=== PATIENT | female | born 1985 | race Caucasian/White ===

== ENCOUNTER 2018-06-02 11:31 | Emergency (ER) | payer SELFPAY ==
[2018-06-02 11:49] VITALS: BP 127/63; PULSE 85; RESP 18; TEMP 37.1; O2SAT 98
--- NOTE | 2018-06-02 12:00 | W.ED.GENAD ---
Discharge Plan Disposition Patient Disposition: HOME Condition: Good Discharge Details Chief Complaint: DentalOral Clinical Impression: Dental infection Primary Care Provider: Mayra,Local ED Provider: Kristofer Hobson Home Meds and New Rx's Prescriptions: New clindamycin HCl 150 mg capsule 450 mg PO TID 10 Days Qty: 90 RF: 0 Continue cyclobenzaprine 5 MG tablet 5 mg PO TID PRN PRN (Reason: Spasms) Qty: 10 RF: 0 albuterol sulfate [Ventolin HFA] 200 PUFF HFA aerosol inhaler 2 puff Inhalation Q4H PRN PRNQty: 1 RF: 3 albuterol sulfate 2.5 MG/3 ML solution for nebulization 2.5 mg Inhalation Q4H PRN (Reason: Wheezing) Qty: 6 RF: 0 albuterol sulfate [Ventolin HFA] 200 PUFF HFA aerosol inhaler 2 puff Inhalation Q4H PRN PRNQty: 1 RF: 0 budesonide [Pulmicort Flexhaler] 180 MCG aerosol powdr breath activated 180 mcg Inhalation BID Qty: 1 RF: 0 Discharge Instructions Additional Instructions: You are being treated for a dental infection take 1000mg tylenol and 600mg ibuprofen for pain as needed follow up with a dentist within 2 weeks if possible return to the emergency department if unable to drink fluids to difficulty breathing Medical Decision Making patient comes in with upper and lower tooth pain for 2 weeks, posterior molars where she has broken teeth per pt. No stridor, drooling, fevers. HAs no evidence of ludwigs and no visible abscess on exam, has pain with percussion to upper and lower posterior molars where there is numerous caries. Midline uvula, no pain over hyoid, no drooling or restricted neck movements.Will start abx and advised f/u with dentist within 2 weeks and return precautions given Differential Diagnosis dental infection, pulpitis, abscess HPI General Mode of arrival: ambulatory. Date/Time Provider Initiated Documentation: 06/02/18 11:51. Limitations to Documentation: no limitations. Information obtained by: patient. History of Present Illness 32 year old F presents to the emergency department with the chief complaint of dental pain, described as severe, with intensity rated at 8. Quality is described as stabbing and aching, and is localized to the mouth. Patient reports no radiation. Patient started experiencing this week(s) (2) and it has been constant. No relieving factors improve symptom(s), No exacerbating factors reported . Patient notes no other symptoms.. Related Data Home Medications Medication Instructions Recorded Confirmed albuterol sulfate [Ventolin HFA] 2 puff INHALATION Q4H PRN PRN #1 10/27/16 06/02/18 inh cyclobenzaprine 5 mg PO TID PRN PRN #10 tab 01/30/17 06/02/18 albuterol sulfate 2.5 mg INHALATION Q4H PRN #6 vial 05/18/17 06/02/18 albuterol sulfate [Ventolin HFA] 2 puff INHALATION Q4H PRN PRN #1 05/18/17 06/02/18 inh budesonide [Pulmicort Flexhaler] 180 mcg INHALATION BID #1 05/18/17 06/02/18 aer.pow.ba clindamycin HCl 450 mg PO TID 10 Days #90 cap 06/02/18 Previous Rx's Medication Instructions Recorded albuterol sulfate [Ventolin HFA] 2 puff INHALATION Q4H PRN PRN #1 10/27/16 inh cyclobenzaprine 5 mg PO TID PRN PRN #10 tab 01/30/17 albuterol sulfate 2.5 mg INHALATION Q4H PRN #6 vial 05/18/17 albuterol sulfate [Ventolin HFA] 2 puff INHALATION Q4H PRN PRN #1 05/18/17 inh budesonide [Pulmicort Flexhaler] 180 mcg INHALATION BID #1 05/18/17 aer.pow.ba clindamycin HCl 450 mg PO TID 10 Days #90 cap 06/02/18 Allergies Allergy/AdvReac Type Severity Reaction Status Date / Time amoxicillin Allergy Intermediate Hives Unverified 06/02/18 11:51 Penicillins Allergy Intermediate Hives Unverified 06/02/18 11:51 Sulfa (Sulfonamide Allergy Intermediate Hives Unverified 06/02/18 11:51 Antibiotics) General Stated Complaint: DentalOral OG: 4 Review of Systems Review of Systems All systems reviewed & are unremarkable except as noted in HPI and below Constitutional Denies chills, Denies fever(s) and Denies weakness ENT Denies change in voice Cardiovascular Denies chest pain and Denies dyspnea Respiratory Denies dyspnea Gastrointestinal Denies abdominal pain, Denies nausea and Denies vomiting Genitourinary Denies dysuria Musculoskeletal Denies joint swelling Integumentary/Breasts Denies rash Neurologic Denies weakness [facility] Social History Smoking/Tobacco Use Status: Current every day Exam Const General: no acute distress Orientation: alert HENMT Head: normal to inspection Ears: external ears normal General nose exam: external nose normal Mouth: moist mucous membranes Eyes General: appearance normal, both eyes and all related structures Neck Neck: normal visual inspection Resp Effort & Inspection: normal respiratory effort and able to speak in complete sentences Cardio Rate: regular rate Skin General skin exam: no rashes or lesions noted Neuro General: alert and oriented x3 Extrem General: normal to inspection Psych Mental Status: mental status grossly normal Course Vital Signs Temperature 37.1 C 06/02/18 11:49 Pulse 85 06/02/18 11:49 Respiratory Rate 18 06/02/18 11:49 Blood Pressure 127/63 06/02/18 11:49 Pulse Oximetry 98 06/02/18 11:49 Temperature 37.1 C 06/02/18 11:49 Temperature Source Skin 06/02/18 11:49 Pulse 85 06/02/18 11:49 Respiratory Rate 18 06/02/18 11:49 Respiratory Effort 06/02/18 11:52 Blood Pressure 127/63 06/02/18 11:49 Blood Pressure Position Sitting 06/02/18 11:49 Pulse Oximetry 98 06/02/18 11:49 Pain Level 8 06/02/18 11:52
--- NOTE | 2018-06-02 12:03 | ED.GENADUL_ITS ---
Discharge Plan Disposition Patient Disposition: HOME Condition: Good Discharge Details Chief Complaint: DentalOral Clinical Impression: Dental infection Primary Care Provider: Mayra,Local ED Provider: Kristofer Hobson Home Meds and New Rx's Prescriptions: New clindamycin HCl 150 mg capsule 450 mg PO TID 10 Days Qty: 90 RF: 0 Continue cyclobenzaprine 5 MG tablet 5 mg PO TID PRN PRN (Reason: Spasms) Qty: 10 RF: 0 albuterol sulfate [Ventolin HFA] 200 PUFF HFA aerosol inhaler 2 puff Inhalation Q4H PRN PRNQty: 1 RF: 3 albuterol sulfate 2.5 MG/3 ML solution for nebulization 2.5 mg Inhalation Q4H PRN (Reason: Wheezing) Qty: 6 RF: 0 albuterol sulfate [Ventolin HFA] 200 PUFF HFA aerosol inhaler 2 puff Inhalation Q4H PRN PRNQty: 1 RF: 0 budesonide [Pulmicort Flexhaler] 180 MCG aerosol powdr breath activated 180 mcg Inhalation BID Qty: 1 RF: 0 Discharge Instructions Additional Instructions: You are being treated for a dental infection take 1000mg tylenol and 600mg ibuprofen for pain as needed follow up with a dentist within 2 weeks if possible return to the emergency department if unable to drink fluids to difficulty breathing Medical Decision Making patient comes in with upper and lower tooth pain for 2 weeks, posterior molars where she has broken teeth per pt. No stridor, drooling, fevers. HAs no evidence of ludwigs and no visible abscess on exam, has pain with percussion to upper and lower posterior molars where there is numerous caries. Midline uvula, no pain over hyoid, no drooling or restricted neck movements.Will start abx and advised f/u with dentist within 2 weeks and return precautions given Differential Diagnosis dental infection, pulpitis, abscess HPI General Mode of arrival: ambulatory . Date/Time Provider Initiated Documentation: 06/02/18 11:51 . Limitations to Documentation: no limitations . Information obtained by: patient . History of Present Illness 32 year old F presents to the emergency department with the chief complaint of dental pain, described as severe, with intensity rated at 8. Quality is described as stabbing and aching, and is localized to the mouth. Patient reports no radiation. Patient started experiencing this week(s) (2) and it has been constant. No relieving factors improve symptom(s), No exacerbating factors reported . Patient notes no other symptoms.. Related Data Home Medications Medication Instructions Recorded Confirmed albuterol sulfate [Ventolin HFA] 2 puff INHALATION Q4H PRN PRN #1 10/27/1606/02 inh cyclobenzaprine 5 mg PO TID PRN PRN #10 tab 01/30/17 06/02/18 albuterol sulfate 2.5 mg INHALATION Q4H PRN #6 vial 05/18/17 06/02/18 albuterol sulfate [Ventolin HFA] 2 puff INHALATION Q4H PRN PRN #1 05/18/1706/02 inh budesonide [Pulmicort Flexhaler] 180 mcg INHALATION BID #1 05/18/17 06/02/18 aer.pow.ba clindamycin HCl 450 mg PO TID 10 Days #90 cap 06/02/18 Previous Rx's Medication Instructions Recorded albuterol sulfate [Ventolin HFA] 2 puff INHALATION Q4H PRN PRN #1 10/27/16 inh cyclobenzaprine 5 mg PO TID PRN PRN #10 tab 01/30/17 albuterol sulfate 2.5 mg INHALATION Q4H PRN #6 vial 05/18/17 albuterol sulfate [Ventolin HFA] 2 puff INHALATION Q4H PRN PRN #1 05/18/17 inh budesonide [Pulmicort Flexhaler] 180 mcg INHALATION BID #1 05/18/17 aer.pow.ba clindamycin HCl 450 mg PO TID 10 Days #90 cap 06/02/18 Allergies Allergy/AdvReac Type Severity Reaction Status Date / Time amoxicillin Allergy Intermediate Hives Unverified 06/02/18 11:51 Penicillins Allergy Intermediate Hives Unverified 06/02/18 11:51 Sulfa (Sulfonamide Allergy Intermediate Hives Unverified 06/02/18 11:51 Antibiotics) General Stated Complaint: DentalOral OG: 4 Review of Systems Review of Systems All systems reviewed & are unremarkable except as noted in HPI and below Constitutional Denies chills, Denies fever(s) and Denies weakness ENT Denies change in voice Cardiovascular Denies chest pain and Denies dyspnea Respiratory Denies dyspnea Gastrointestinal Denies abdominal pain, Denies nausea and Denies vomiting Genitourinary Denies dysuria Musculoskeletal Denies joint swelling Integumentary/Breasts Denies rash Neurologic Denies weakness [facility] Social History Smoking/Tobacco Use Status: Current every day Exam Const General: no acute distress Orientation: alert HENMT Head: normal to inspection Ears: external ears normal General nose exam: external nose normal Mouth: moist mucous membranes Eyes General: appearance normal, both eyes and all related structures Neck Neck: normal visual inspection Resp Effort & Inspection: normal respiratory effort and able to speak in complete sentences Cardio Rate: regular rate Skin General skin exam: no rashes or lesions noted Neuro General: alert and oriented x3 Extrem General: normal to inspection Psych Mental Status: mental status grossly normal Course Vital Signs Temperature 37.1 C 06/02/18 11:49 Pulse 85 06/02/18 11:49 Respiratory Rate 18 06/02/18 11:49 Blood Pressure 127/63 06/02/18 11:49 Pulse Oximetry 98 06/02/18 11:49 Temperature 37.1 C 06/02/18 11:49 Temperature Source Skin 06/02/18 11:49 Pulse 85 06/02/18 11:49 Respiratory Rate 18 06/02/18 11:49 Respiratory Effort 06/02/18 11:52 Blood Pressure 127/63 06/02/18 11:49 Blood Pressure Position Sitting 06/02/18 11:49 Pulse Oximetry 98 06/02/18 11:49 Pain Level 8 06/02/18 11:52
[2018-06-02 12:11] VITALS: BP 127/63; PULSE 85; RESP 18; TEMP 37.1; O2SAT 98
== END 2018-06-02 12:11 | disposition home or self-care (01) ==
PROVIDERS: Emergency Provider Emergency Medicine
DX: K04.7 Periapical abscess without sinus (principal)
CPT/HCPCS: 99283

== ENCOUNTER 2018-07-31 11:14 | Emergency (ER) | payer OTHER, SELFPAY ==
[2018-07-31 11:27] VITALS: BP 114/55; PULSE 84; RESP 18; TEMP 37; O2SAT 98
--- NOTE | 2018-07-31 12:16 | PDOC.ERCMPRO ---
Care Management Progress Note 07/31-Dr. Almonte requested assistance with calling Briseida CHAMBERS at [facility] for status of tetanus. Called [facility] and spoke with Alyssa. Alyssa stated that Kavita's last tetanus was 10/22/2002. Above information given to Dr. Almonte.
--- NOTE | 2018-07-31 12:19 | CMPROGNOTE_ITS ---
Care Management Progress Note 07/31-Dr. Almonte requested assistance with calling Briseida CHAMBERS at [facility] for status of tetanus. Called [facility] and spoke with Alyssa. Alyssa stated that Kavita's last tetanus was 10/22/2002. Above information given to Dr. Almonte.
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
[2018-07-31] MEDS: Ondansetron O.D.T. 4 MG TABEF PO (12:36)
[2018-07-31] MEDS: Ibuprofen 600 MG TAB PO (12:36)
[2018-07-31] MEDS: Ondansetron O.D.T. 4 MG TABEF 8 MG PO (14:23)
[2018-07-31 14:25] VITALS: RESP 18
== END 2018-07-31 14:26 | disposition home or self-care (01) ==
PROVIDERS: Emergency Provider Physician Assistant
DX: S01.512A Laceration without foreign body of oral cavity, initial encounter (principal); S00.81XA Abrasion of other part of head, initial encounter; S80.02XA Contusion of left knee, initial encounter; V43.02XA Car driver injured in collision with other type car in nontraffic accident, initial encounter; R11.0 Nausea
CPT/HCPCS: 90471; 99284; 99283

== ENCOUNTER → 2018-12-23 13:45 | Outpatient (CLI) | payer SELFPAY ==
[2018-12-23 16:24] LABS: TSH (W/Ref FT4) 2.62 uIU/mL (0.358-3.74)
[2018-12-24 10:24] LABS: Hepatitis C Ab w Rflx HCV PCR Negative (NEGAT)
[2018-12-24 10:29] LABS: HIV-1/2 Ag & Ab Screen Negative (NEGAT); Hepatitis B Surface Ag Negative (NEGAT)
[2018-12-25 14:17] LABS: Syphilis Total Ab w/Reflex Nonreactive (Nonreactive)
== END ==
PROVIDERS: PCP Family Medicine; Visit Provider Nurse Practitioner Women's Health
DX: Z11.3 Encounter for screening for infections with a predominantly sexual mode of transmission (principal); N92.6 Irregular menstruation, unspecified; R53.83 Other fatigue; Z11.4 Encounter for screening for human immunodeficiency virus [HIV]; Z11.59 Encounter for screening for other viral diseases
CPT/HCPCS: 36415; 86803; 87340; 87389; 84443; 86780

== ENCOUNTER → 2018-12-23 14:06 | Outpatient (REF) | payer SELFPAY ==
--- NOTE | 2018-12-23 13:30 | PAPFT_PTH ---
PATIENT: Kavita Cole LOC: [facility] U#:[id number] AGE/SX: 39/F ROOM: RE12/23/[address]: Andra Hobson NP : 1985 BED: DIS: SPEC #: [id number] RECD: 12/23/18 16:54 STATUS: PARISTereza RESenia #: [id number] DENZEL: 12/23/18 13:[address]: Andra Hobson NP DEPT: [facility] Cytology RECD BY: Michelle Palma ENTERED: 12/23/18 16:54 SP TYPE: PAPFT OTHR DR: Mehreen Daniel Tissues: 1 - CX/ENDOCX FOR PAP SMEARS Procedures: PAP THIN PREP/UVM Screening HPV DNA PROBE Comments: [id number] (CHLAMYDIA/GC)
[2018-12-24 13:55] LABS: Chlamydia Result Negative; GC Result Negative; Specimen Description SEE COMMENTS
== END ==
LOC: LBN 14:06
PROVIDERS: PCP Family Medicine; Visit Provider Nurse Practitioner Women's Health
DX: Z12.4 Encounter for screening for malignant neoplasm of cervix (principal); Z11.51 Encounter for screening for human papillomavirus (HPV)
CPT/HCPCS: 87491; 87591; 88142; 87624

== ENCOUNTER 2019-10-25 10:15 | Outpatient (CLI) | payer MEDICAID, SELFPAY ==
[2019-10-27 09:37] LABS: COVID-19 RT-PCR Result Not Detected (NotDetected)
== END 2019-10-25 10:35 ==
PROVIDERS: PCP Family Medicine; Visit Provider Physician Assistant Medical
DX: Z11.59 Encounter for screening for other viral diseases (principal)
CPT/HCPCS: U0003

== ENCOUNTER 2023-04-08 08:07 | Emergency (ER) | payer MEDICAID, SELFPAY ==
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
[2023-04-08 08:11] VITALS: BP 128/75; PULSE 80; RESP 16; TEMP 36.4; O2SAT 100
--- NOTE | 2023-04-08 08:30 | RT.EKG_ITS ---
APPROVED REPORT Exam: Resting ECG Reason for Exam: Syncope Patient Location: E HR:65 bpm ECG Measurements Heart Rate 65 AXIS MA 125 P 37 QRSd 80 QRS 45 QT 397 T 30 QTc 414 Conclusion Sinus rhythm...normal P axis, V-rate 60- 99 Narrow complex normal sinus rhythm at a rate of 65. Normal axis. Intervals within normal limits. N o acute injury pattern. No prior for comparison.
[2023-04-08 09:01] LABS: Abs Immature Grans 0.02 10^3/uL (0.0-0.06); Absolute Basophil Count 0.06 10^3/uL (0.0-0.2); Absolute Eosinophil Count 0.28 10^3/uL (0.0-0.7); Absolute Monocyte Count 0.41 10^3/uL (0.1-0.8); Absolute Neutrophil Count 4.76 10^3/uL (1.2-6.7); Basophils % 0.8; Eosinophils % 3.6; HCT 41.3 % (36.0-46.0); HGB 13.8 g/dL (11.2-15.7); Immature Grans % 0.3; Lymphocytes % 28.5; MCH 30.6 pg (27.0-33.0); MCHC 33.4 % (32.0-36.0); MCV 92 fL (80-95); MPV 10.5 fL (8.0-11.0); Monocytes % 5.3; Neutrophils % 61.5; Platelet Count 300 10^3/uL (130-400); RBC 4.51 10^6/uL (3.93-5.22); RDW-SD 40.6 fL; WBC 7.73 10^3/uL (4.4-10.8)
[2023-04-08 09:29] LABS: Anion Gap 10.1 mmol/L (3-11); BUN 8 mg/dL (7-18); CO2 26.9 mmol/L (21.0-32.0); CREATININE 0.7 mg/dL (0.55-1.02); Calcium 9.7 mg/dL (8.5-10.1); Chloride 101 mmol/L (98-107); Estimated GFR 115.59 (mL/min/1.73m2); Glucose 93 mg/dL (74-106); Sodium 138 mmol/L (136-145); Troponin I < 50 ng/L (<or=60)
[2023-04-08 09:35] LABS: HCG Qual (Serum) Negative
--- NOTE | 2023-04-08 09:58 | NUR.NOTE ---
Pt Fully assessed. Pt denies all further interventions, treatment or resources. Nursing Note:
== END 2023-04-08 10:04 | disposition home or self-care (01) ==
PROVIDERS: Emergency Provider Emergency Medicine; PCP Family Medicine
DX: R55 Syncope and collapse (principal)
CPT/HCPCS: 80048; 93005; 99283; 84484; 84703; 85025; 93010; 99282